=== PATIENT | female | born 1980 | race Caucasian/White ===

== ENCOUNTER → 2017-04-13 | Outpatient (CLI) | payer OTHER ==
[~2017-04-13] MED LIST: CRYSELLE 30 MCG1 TAB PO; KEFLEX 500MG.500 MG PO; PREDNISONE 20MG20 MG PO
[2017-04-13 18:09] LABS: LYMPH # 2.2 K/mm3 (0.7-4.5); LYMPH % 20.6 % (10-50.0)
[2017-04-13 18:26] LABS: HEMOGLOBIN 13.7 g/dL (12.2-16.2)
[2017-04-13 18:49] LABS: BUN 9 mg/dL (7-18)
[2017-04-13 18:55] LABS: GFR (ESTIMATED) 82 ML/MIN (59-)
== END ==
LOC: LAB 16:44
PROVIDERS: Nurse Practitioner Family
DX: I10 Essential (primary) hypertension (principal); R53.83 Other fatigue; E55.9 Vitamin D deficiency, unspecified

== ENCOUNTER → 2017-05-01 | Outpatient (CLI) | payer OTHER ==
[2017-05-01 17:22] LABS: BUN 10 mg/dL (7-18); GFR (ESTIMATED) 72 ML/MIN (59-)
--- NOTE | 2017-05-04 21:24 | RADIOLOGY REPORT PS360 ---
PROCEDURE: 2-D M-mode and color Doppler study INDICATIONS FOR THE TEST: Chest pain COPD Heart Murmur Tobacco Smoking+ Palpitations Fatigue+ Syncope Edema Hypertension+Diabetes Mellitus Rheumatic Fever SOB CHRISTIAN Obesity Hyperlipidemia Family History HD+ Additional History PATIENT INFORMATION HEIGHT: 67 WEIGHT: 294 GENDER: Female B/P: 127/85 2-D/M-MODE INTERPRETATION: 2-D MEASUREMENTS OBSERVED VALUES IN CMS Right Ventricular Dimension (RVDd) 1.9 Interventricular Septum (Thickness)(IVsd) 1.2 Left Ventricular Internal Dimensions(LVIDd) 4.2 Left Ventricular Posterior Wall (Thickness)(LVPWd) 1.2 Aortic Root 3.3 Aortic Cusp Separation 1.8 Left Atrial Dimensions (LAD) 2.9 2D 1. Left atrium is normal size, left ventricle is normal size, left ventricle wall thickness is upper limit of normal, there is preserved left ventricular systolic function, visually estimated ejection fraction 55% with no obvious regional wall motion abnormality. 2. The right atrium and right ventricle are normal size and contractility. 3. The aortic, mitral and tricuspid valvular grossly normal. 4. The pulmonic valve is poorly visualized. 5. No significant pericardial effusion noted. DOPPLER INTERROGATION: Doppler interrogation of the aortic, mitral and tricuspid valvular presence of mild mitral and tricuspid regurgitation, tricuspid regurgitant jet velocity insufficient for calculation of the right ventricular systolic pressure, diastolic parameters are within normal range. CONCLUSION: 1. Technically difficult study because of the patient's factor and poor acoustic windows. 2. Normal left ventricular size, preserved left ventricular systolic function, visually estimated ejection fraction 55% with no obvious regional wall motion abnormality. Diastolic parameters are within normal range. 3. Mild mitral and tricuspid regurgitation. 4. No significant pericardial effusion noted.
== END ==
LOC: RT 14:30 → LAB 14:58 → RT 14:58
PROVIDERS: Internal Medicine Cardiovascular Disease
DX: R00.0 Tachycardia, unspecified (principal); R06.09 Other forms of dyspnea; I10 Essential (primary) hypertension; K21.9 Gastro-esophageal reflux disease without esophagitis; E66.9 Obesity, unspecified; R53.83 Other fatigue; R06.83 Snoring; G47.10 Hypersomnia, unspecified; Z72.0 Tobacco use

== ENCOUNTER → 2017-06-01 | Outpatient (CLI) | payer OTHER ==
--- NOTE | 2017-06-02 14:18 | RADIOLOGY REPORT PS360 ---
CARDIOLITE SPECT MYOCARDIAL PERFUSION SCAN, REST AND STRESS: EXERCISE STRESS [facility] REVIEW QGS EF AND WALL MOTION EVALUATION: QPS - PERFUSION EVALUATION HISTORY: Palpitations, HTN, Tobacco use DOSE: 10.16 mCi technetium 99m mibi intravenously at rest followed by 31.2 mCi technetium 99m mibi following the intravenous ministration of 0.4 mg of Lexiscan. Resting blood pressure is 139/83. Stress blood pressure 130/70. FINDINGS: Ejection fraction is calculated to be 63%. Stress images reveal severely decreased activity throughout the anterior wall with no change in rest. Gated images calculated ejection fraction of 63% with normal wall motion IMPRESSION: Large anterior defect is most consistent with breast attenuation given the normal ejection fraction normal wall motion. Clinical correlation is advised.
--- NOTE | 2017-06-02 14:18 | RADIOLOGY REPORT PS360 ---
CARDIOLITE SPECT MYOCARDIAL PERFUSION SCAN, REST AND STRESS: EXERCISE STRESS [facility] REVIEW QGS EF AND WALL MOTION EVALUATION: QPS - PERFUSION EVALUATION HISTORY: Palpitations, HTN, Tobacco use DOSE: 10.16 mCi technetium 99m mibi intravenously at rest followed by 31.2 mCi technetium 99m mibi following the intravenous ministration of 0.4 mg of Lexiscan. Resting blood pressure is 139/83. Stress blood pressure 130/70. FINDINGS: Ejection fraction is calculated to be 63%. Stress images reveal severely decreased activity throughout the anterior wall with no change in rest. Gated images calculated ejection fraction of 63% with normal wall motion IMPRESSION: Large anterior defect is most consistent with breast attenuation given the normal ejection fraction normal wall motion. Clinical correlation is advised.
== END ==
LOC: RAD 06:33
DX: R07.89 Other chest pain (principal); R06.00 Dyspnea, unspecified; I10 Essential (primary) hypertension
CPT/HCPCS: A9502; J2785

== ENCOUNTER → 2017-06-08 | Outpatient (CLI) | payer OTHER | LOC: SL 19:36 | DX: R07.89 Other chest pain (principal); R06.00 Dyspnea, unspecified; I10 Essential (primary) hypertension; G47.33 Obstructive sleep apnea (adult) (pediatric) | CPT/HCPCS: G0399-TC ==